=== PATIENT | female | born 1965 | race Caucasian/White ===

== ENCOUNTER 2022-12-27 04:45 | Emergency (ER) | payer OTHER ==
[~2022-12-27] VITALS: Ht 167.6 cm; Wt 88.5 kg
[2022-12-27 05:00] VITALS: BP 114/59; PULSE 82; RESP 16; TEMP 96.2; O2SAT 97
[2022-12-27] MEDS ORDERED: KETOROLAC 60 MG/2 ML VIAL IM ONE (05:55)
[2022-12-27 06:40] LABS: BASOPHILS % (AUTO) 0.4 % (0.0-2.0); EOSINOPHILS # (AUTO) 0.2 K/uL (0-0.4); EOSINOPHILS % (AUTO) 2.4 % (0.0-4.0); HEMATOCRIT 36.9 % (36-48); HEMOGLOBIN 12.4 g/dL (12.0-16.0); LYMPHOCYTES % (AUTO) 23.4 % (20.5-51.1); MEAN CORPUSCULAR HEMOGLOBIN 29 pg (27-31); MEAN CORPUSCULAR HGB CONC 34 g/dL (33-37); MEAN CORPUSCULAR VOLUME 85.6 fL (80-94); MONOCYTES # (AUTO) 0.6 K/uL (0.8-1.0); MONOCYTES % (AUTO) 6.6 % (1.7-9.3); NEUTROPHILS # (AUTO) 5.6 K/uL (1.8-7.7); NEUTROPHILS % (AUTO) 67.2 % (42.2-75.2); PLATELET COUNT (AUTO) 532 K/uL (140-450); RED BLOOD CELL COUNT(AUTO) 4.32 MIL/uL (4.20-5.40); RED CELL DISTRIBUTION WIDTH 13.1 % (11.6-13.7); WHITE BLOOD COUNT (AUTO) 8.3 K/uL (4.8-10.8)
[2022-12-27 06:55] LABS: ALBUMIN 3.7 g/dL (3.4-5.0); ANION GAP 14.9 (8-16); CALCIUM 8.8 mg/dL (8.5-10.1); CREATININE 0.9 mg/dL (0.6-1.3); POTASSIUM 3.9 mmol/L (3.5-5.1); TOTAL BILIRUBIN 0.3 mg/dL (0.0-1.0); TOTAL PROTEIN, SERUM 7.5 g/dL (6.4-8.2)
[2022-12-27] MEDS ORDERED: APIX5TAB PO (09:07)
[2022-12-27 09:23] VITALS: BP 118/68; PULSE 73; RESP 18; TEMP 96.5
== END 2022-12-27 09:23 | disposition home or self-care (01) ==
LOC: MED 04:45
DX: I82.412 Acute embolism and thrombosis of left femoral vein (principal); E11.9 Type 2 diabetes mellitus without complications; Z79.01 Long term (current) use of anticoagulants; Z88.8 Allergy status to other drugs, medicaments and biological substances
CPT/HCPCS: 36415; 80053; 85025; 85379; 93971; 96372; 99285; J1885; Q0092

== ENCOUNTER 2023-04-19 07:53 | Emergency (ER) | payer OTHER ==
[~2023-04-19] VITALS: Ht 167.6 cm; Wt 89.4 kg
[~2023-04-19 07:53] MED LIST: APIX5TAB PO
[2023-04-19 07:55] VITALS: BP 113/71; PULSE 87; RESP 18; TEMP 98.2; O2SAT 99
[2023-04-19 09:06] LABS: FLU A ANTIGEN negative (NEGATIVE)
[2023-04-19 09:09] LABS: FLU B ANTIGEN POSITIVE (NEGATIVE)
[2023-04-19] MEDS ORDERED: POLY10DR5 OP (09:15)
[2023-04-19] MEDS ORDERED: TAM75 PO (09:15)
== END 2023-04-19 09:21 | disposition home or self-care (01) ==
LOC: MED 07:53
DX: H10.9 Unspecified conjunctivitis (principal); Z20.822 Contact with and (suspected) exposure to COVID-19; J10.1 Influenza due to other identified influenza virus with other respiratory manifestations; E11.9 Type 2 diabetes mellitus without complications; Z79.899 Other long term (current) drug therapy; Z79.4 Long term (current) use of insulin; Z88.8 Allergy status to other drugs, medicaments and biological substances
CPT/HCPCS: 99283

== ENCOUNTER 2023-07-30 15:10 | Emergency (ER) | payer OTHER ==
[~2023-07-30] VITALS: Ht 167.6 cm; Wt 87.5 kg
[~2023-07-30 15:10] MED LIST changes: +POLY10DR5 OP; +TAM75 PO
[2023-07-30 15:26] VITALS: BP 117/51; PULSE 70; RESP 18; TEMP 97.5; O2SAT 98
[2023-07-30] MEDS: KETOROLAC 30 MG/ML VIAL IM ONE (16:16)
[2023-07-30 18:15] LABS: APPEARANCE,URINE CLEAR (CLEAR); COLOR,URINE YELLOW (YELLOW)
[2023-07-30 18:17] LABS: PROTEIN,URINE NEGATIVE (NEGATIVE); UGLUCOSE NEGATIVE (NEGATIVE)
[2023-07-30 18:18] LABS: BILIRUBIN,URINE NEGATIVE (NEGATIVE); BLOOD, URINE NEGATIVE (NEGATIVE)
[2023-07-30 18:19] LABS: LEUKOCYTE ESTERASE ,URINE NEGATIVE (NEGATIVE); NITRITE, URINE NEGATIVE (NEGATIVE); UROBILINOGEN,URINE 0.2 EU/dL (0.2 - 1)
[2023-07-30] MEDS ORDERED: IBUP-2213 PO (18:40)
[2023-07-30 18:49] VITALS: BP 122/82; PULSE 78; RESP 18; TEMP 98.1; O2SAT 98
[2023-07-30] MEDS ORDERED: ACET-8905 PO (18:49)
== END 2023-07-30 18:49 | disposition home or self-care (01) ==
LOC: MED 15:10
DX: M54.41 Lumbago with sciatica, right side (principal); E11.9 Type 2 diabetes mellitus without complications; E78.5 Hyperlipidemia, unspecified; Z86.718 Personal history of other venous thrombosis and embolism; Z79.899 Other long term (current) drug therapy; Z79.01 Long term (current) use of anticoagulants; Z88.5 Allergy status to narcotic agent
CPT/HCPCS: 81003; 81025; 96372; 99283; J1885

== ENCOUNTER 2023-08-06 07:01 | Emergency (ER) | payer OTHER ==
[~2023-08-06] VITALS: Ht 167.6 cm; Wt 88.0 kg
[~2023-08-06 07:01] MED LIST changes: +ACET-8905 PO; +IBUP-2213 PO
[2023-08-06 07:16] VITALS: BP 114/55; PULSE 96; RESP 14; TEMP 98.6; O2SAT 98
[2023-08-06 07:24] VITALS: BP 114/55; PULSE 96; RESP 14; TEMP 98.6; O2SAT 98
[2023-08-06 07:27] LABS: APPEARANCE,URINE CLOUDY (CLEAR); BILIRUBIN,URINE NEGATIVE (NEGATIVE); BLOOD, URINE 3+ (NEGATIVE); LEUKOCYTE ESTERASE ,URINE 1+ (NEGATIVE); NITRITE, URINE POSITIVE (NEGATIVE); PROTEIN,URINE NEGATIVE (NEGATIVE); UGLUCOSE 3+ (NEGATIVE); UROBILINOGEN,URINE 0.2 EU/dL (0.2 - 1)
[2023-08-06 07:43] LABS: COLOR,URINE STRAW (YELLOW)
[2023-08-06 07:45] LABS: BACTERIA,URINE 2+ /HPF (None Seen); RBC,URINE >20 (MANY) /HPF (0-5); SQUAMOUS EPITHELIAL CELL,UR 0-3 (FEW) /LPF (0-3 (FEW)); WBC,URINE >25 (MANY) /HPF (0-5)
[2023-08-06] MEDS ORDERED: PYR100 PO (07:56)
[2023-08-06] MEDS ORDERED: IBUP-2213 PO (07:56)
[2023-08-06] MEDS ORDERED: CEPH-588 PO (07:56)
[2023-08-06] MEDS ORDERED: LIDOCAINE MPF 1% 5 ML ONE (08:00)
[2023-08-06] MEDS ORDERED: cefTRIAXone 1,000 MG VIAL ONE (08:00)
[2023-08-06] MEDS: PHENAZOPYRIDINE 100 MG TAB PO ONE (08:02)
[2023-08-06] MEDS ORDERED: ONDA-188 PO (08:03)
[2023-08-06] MEDS: cefTRIAXone 1,000 MG in LIDOCAINE MPF 1% 2.1 ML IM ONE (08:08)
[2023-08-06] MEDS: ONDANSETRON 4 MG ODT PO ONE (08:10)
[2023-08-06] MEDS: KETOROLAC 30 MG/ML VIAL IM ONE (08:35)
== END 2023-08-06 08:37 | disposition home or self-care (01) ==
LOC: MED 07:01
DX: N39.0 Urinary tract infection, site not specified (principal); E11.9 Type 2 diabetes mellitus without complications; Z79.4 Long term (current) use of insulin; Z79.899 Other long term (current) drug therapy; Z88.8 Allergy status to other drugs, medicaments and biological substances
CPT/HCPCS: 81001; 87086; 96372; 99284; J0696; J1885; J2001; Q0162; 87186

== ENCOUNTER 2023-12-15 18:13 | Emergency (ER) | payer OTHER ==
[~2023-12-15] VITALS: Ht 165.1 cm; Wt 94.8 kg
[~2023-12-15 18:13] MED LIST changes: +CEPH-588 PO; +ONDA-188 PO; +PYR100 PO
[2023-12-15 18:26] VITALS: BP 118/65; PULSE 99; RESP 18; TEMP 97.4; O2SAT 99
[2023-12-15 19:07] LABS: APPEARANCE,URINE CLOUDY (CLEAR); BILIRUBIN,URINE NEGATIVE (NEGATIVE); BLOOD, URINE 2+ (NEGATIVE); LEUKOCYTE ESTERASE ,URINE 1+ (NEGATIVE); NITRITE, URINE NEGATIVE (NEGATIVE); PROTEIN,URINE 1+ (NEGATIVE); UGLUCOSE 3+ (NEGATIVE); UROBILINOGEN,URINE 0.2 EU/dL (0.2 - 1)
[2023-12-15 19:10] LABS: COLOR,URINE AMBER (YELLOW)
[2023-12-15 19:19] LABS: BACTERIA,URINE >30 (MANY) /HPF (None Seen); RBC,URINE 20-50 /HPF (0-5); SQUAMOUS EPITHELIAL CELL,UR 0-3 (FEW) /LPF (0-3 (FEW)); WBC,URINE 16-25 (MOD) /HPF (0-5)
[2023-12-15 19:20] LABS: MUCUS,URINE 1+ /LPF (None Seen)
[2023-12-15] MEDS ORDERED: CEPH-588 PO (19:44)
[2023-12-15] MEDS ORDERED: PYR100 PO (19:44)
[2023-12-15] MEDS: KETOROLAC 30 MG/ML VIAL IM ONE (19:51)
== END 2023-12-15 20:10 | disposition home or self-care (01) ==
LOC: MED 18:13
DX: N39.0 Urinary tract infection, site not specified (principal); E11.9 Type 2 diabetes mellitus without complications; I10 Essential (primary) hypertension; E78.5 Hyperlipidemia, unspecified; Z79.899 Other long term (current) drug therapy; Z86.73 Personal history of transient ischemic attack (TIA), and cerebral infarction without residual deficits; Z88.8 Allergy status to other drugs, medicaments and biological substances
CPT/HCPCS: 81001; 87086; 96372; 99283; J1885